=== PATIENT | female | born 2005 | race Hispanic/Latino ===

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

== ENCOUNTER 2023-06-09 15:54 | Emergency (ER) | payer OTHER, SELFPAY ==
[2023-06-09] MEDS ORDERED: Dexamethasone 10 MG/ML VIAL ONE (17:32)
[2023-06-09] MEDS ORDERED: Ondansetron ODT 4 MG TAB ONE (17:33)
[2023-06-09 17:40] LABS: SARS-CoV-2 NAA Rapid Test Not Detected (NotDetected)
== END 2023-06-09 18:36 | disposition home or self-care (01) ==
LOC: ERS 15:54
DX: J02.0 Streptococcal pharyngitis (principal); R11.2 Nausea with vomiting, unspecified
CPT/HCPCS: 99284; J1100; Q0162

== ENCOUNTER 2024-07-05 21:49 | Emergency (ER) | payer SELFPAY | END 2024-07-06 00:02 | disposition home or self-care (01) | LOC: ERS 21:49 | DX: J06.9 Acute upper respiratory infection, unspecified (principal) | CPT/HCPCS: 87081; 87428; 87430; 99283 ==

== ENCOUNTER 2025-01-17 10:44 | Emergency (ER) | payer SELFPAY ==
[2025-01-17] MEDS ORDERED: Ibuprofen 800 MG TAB ONE (11:46)
== END 2025-01-17 12:05 | disposition home or self-care (01) ==
LOC: ERS 10:44
DX: M25.562 Pain in left knee (principal); W10.9XXA Fall (on) (from) unspecified stairs and steps, initial encounter
CPT/HCPCS: 99283